=== PATIENT | male | born 1955 | race Caucasian/White ===

== ENCOUNTER 2021-09-03 09:19 | Inpatient (IN) ==
[2021-09-03] MEDS ORDERED: *HR* LORazepam 2 MG/ML VIAL IVP ONE (09:49)
[2021-09-03 10:11] LABS: Basophils % 0.5 %; Bilirubin,Urine Negative (Negative); Blood,Urine Negative (Negative); Clarity,Urine Clear (Clear); Color,Urine Yellow (Yellow); Eosinophils % 0.7 %; Glucose,Urine (UA) Normal (Normal); Hematocrit 49.2 % (37.5-50.1); Hemoglobin 16.5 g/dL (12.9-16.9); Immature Granulocytes % 0.2 % (0-4); Ketones,Urine Negative (Negative); Leukocyte Esterase,Urine Negative (Negative); Lymphocytes # 1.3 K/mcL (0.6-4.6); Mean Corpuscular HGB Conc 33.5 g/dL (31.6-35.5); Mean Corpuscular Hemoglobin 31.1 pg (28.0-33.3); Mean Corpuscular Volume 92.7 fL (83.0-100.0); Mean Platelet Volume 10.6 fL (9.4-12.4); Monocytes # 0.3 K/mcL (0.0-1.3); Monocytes % 7.6 %; Neutrophils # 2.7 K/mcL (1.6-8.9); Nitrite,Urine Negative (Negative); PH,Urine 6.5 pH Units (5.0-8.0); Platelet Count 182 K/mcL (140-400); Protein,Urine Trace mg/dL (Neg-Trace); Red Blood Count 5.31 M/mcL (4.19-5.50); Urobilinogen,Urine Normal (Normal); White Blood Count 4.3 K/mcL (4.3-11.1)
[2021-09-03 10:19] LABS: Amphetamine Screen,Urine Negative ng/mL (Cutoff=1000); Barbiturate Screen,Urine Negative ng/mL (Cutoff=200); Benzodiazepines Screen,Urine Negative ng/mL (Cutoff=200); Cannabinoid Screen,Urine Negative ng/mL (Cutoff = 50); Cocaine Screen,Urine Negative ng/mL (Cutoff= 300); Opiate Screen,Urine Negative ng/mL (Cutoff=300); Phencyclidine Screen,Urine Negative ng/mL (Cutoff=25)
[2021-09-03 10:22] LABS: Estimated Average Glucose 126 mg/dl
[2021-09-03 10:31] LABS: Acetaminophen < 10 mcg/mL (10-20); BUN/Creatinine Ratio 13 (6-26); Blood Urea Nitrogen 17 mg/dL (8-23); Carbon Dioxide 26 mEq/L (23-29); Chloride 106 mEq/L (98-107); Chol/HDL Ratio 4.1 (0-4.9); Cholesterol 210 mg/dL (< 200); Ethanol < 10 mg/dL (Less than 10); Glucose 117 mg/dL (70-105); HDL Cholesterol 51 mg/dL (40-59); LDL Cholesterol,Calculated 131 mg/dL (< 100); Osmolality,Calculated 293 (280-300); Potassium 4.4 mEq/L (3.5-5.1); Salicylate < 2.5 mg/dL (15.0-30.0); Sodium 140 mEq/L (136-145); Triglycerides 138 mg/dL (< 150); eGFR For African Americans > 60 (> 60); eGFR For Non-African Americans 55 (> 60)
[2021-09-03 10:44] LABS: Thyroid Stimulating Hormone 1.813 mcIU/mL (0.340-5.600)
[2021-09-03] MEDS ORDERED: Acetaminophen 325 MG TABLET PO PRN (12:49)
[2021-09-03] MEDS ORDERED: *HR* LORazepam 2 MG/ML VIAL IM PRN (12:49)
[2021-09-03] MEDS ORDERED: *HR* LORazepam 1 MG TABLET PO PRN (12:49)
[2021-09-03] MEDS ORDERED: haloperidoL 5 MG TABLET PO PRN (12:49)
[2021-09-03] MEDS ORDERED: traZODone 50 MG TABLET PO PRN (12:49)
[2021-09-03] MEDS ORDERED: Mag Hydrox/Al Hydrox/Simeth 30 ML UDC PO PRN (12:49)
[2021-09-03] MEDS ORDERED: Haloperidol Lactate 5 MG/ML VIAL IM PRN (12:49)
[2021-09-03] MEDS ORDERED: MOM Conc 10 ML UD.LIQ PO PRN (12:49)
[2021-09-03 14:21] LABS: Influenza A PCR Negative (Negative); Influenza B PCR Negative (Negative); Resp. Syncytial Virus PCR Negative (Negative)
[2021-09-03 14:22] LABS: SARS-CoV-2 by PCR (In House) Negative (Negative)
[2021-09-03] MEDS: tiZANidine 4 MG TABLET PO SCH (20:57)
[2021-09-03] MEDS: Eszopiclone [Lunesta] 3 MG Tablet PO SCH (20:57)
[2021-09-03] MEDS: Cyprohepatdine 4 MG TABLET PO SCH (20:57)
[2021-09-04] MEDS: hydrOXYzine pamoate 25 MG CAPSULE PO PRN ×2 (00:39→08:04)
[2021-09-04] MEDS: Cyprohepatdine 4 MG TABLET PO SCH ×2 (08:03→20:51)
[2021-09-04] MEDS: Aspirin 325 MG TABLET PO SCH (08:03)
[2021-09-04] MEDS: Multivit/Ca/Min/Fe/FA 1 TAB TABLET PO SCH (08:03)
[2021-09-04] MEDS: Vitamin E 200 UNIT (90MG) CAPSULE PO SCH (08:04)
[2021-09-04] MEDS ORDERED: Venlafaxine XR (24 HR) 150 MG CAP.ER.24H PO SCH (09:00)
[2021-09-04] MEDS: *HR* LORazepam 1 MG TABLET PO SCH ×2 (10:50→20:52)
[2021-09-04] MEDS: Lurasidone 20 MG TABLET PO SCH (10:50)
[2021-09-04] MEDS: tiZANidine 4 MG TABLET PO SCH (20:51)
[2021-09-04] MEDS: Eszopiclone [Lunesta] 3 MG Tablet PO SCH (20:52)
[2021-09-05] MEDS: Cyprohepatdine 4 MG TABLET PO SCH ×2 (08:35→20:31)
[2021-09-05] MEDS: Vitamin E 200 UNIT (90MG) CAPSULE PO SCH (08:35)
[2021-09-05] MEDS: Multivit/Ca/Min/Fe/FA 1 TAB TABLET PO SCH (08:35)
[2021-09-05] MEDS: Lurasidone 20 MG TABLET PO SCH (08:36)
[2021-09-05] MEDS: Aspirin 325 MG TABLET PO SCH (08:36)
[2021-09-05] MEDS: *HR* LORazepam 1 MG TABLET PO SCH ×2 (08:36→20:31)
[2021-09-05] MEDS ORDERED: Venlafaxine XR (24 HR) 75 MG CAP.ER.24H PO SCH (09:00)
[2021-09-05] MEDS: tiZANidine 4 MG TABLET PO SCH (20:31)
[2021-09-05] MEDS: Eszopiclone [Lunesta] 3 MG Tablet PO SCH (20:38)
[2021-09-05] MEDS: hydrOXYzine pamoate 25 MG CAPSULE PO PRN (23:06)
[2021-09-06] MEDS: *HR* LORazepam 1 MG TABLET PO SCH ×2 (08:25→20:33)
[2021-09-06] MEDS: Cyprohepatdine 4 MG TABLET PO SCH ×2 (08:25→20:34)
[2021-09-06] MEDS: Vitamin E 200 UNIT (90MG) CAPSULE PO SCH (08:25)
[2021-09-06] MEDS: Multivit/Ca/Min/Fe/FA 1 TAB TABLET PO SCH (08:26)
[2021-09-06] MEDS: Aspirin 325 MG TABLET PO SCH (08:26)
[2021-09-06] MEDS: Lurasidone 20 MG TABLET PO SCH (08:26)
[2021-09-06] MEDS ORDERED: Venlafaxine XR (24 HR) 37.5 MG CAP.ER.24H PO SCH (09:00)
[2021-09-06] MEDS: Eszopiclone [Lunesta] 3 MG Tablet PO SCH (20:33)
[2021-09-06] MEDS: tiZANidine 4 MG TABLET PO SCH (20:34)
[2021-09-06] MEDS ORDERED: Melatonin 3 MG TABLET PO SCH (21:00)
[2021-09-07] MEDS: Vitamin E 200 UNIT (90MG) CAPSULE PO SCH (08:26)
[2021-09-07] MEDS: Lurasidone 20 MG TABLET PO SCH (08:27)
[2021-09-07] MEDS: Aspirin 325 MG TABLET PO SCH (08:27)
[2021-09-07] MEDS: Cyprohepatdine 4 MG TABLET PO SCH (08:28)
[2021-09-07] MEDS: *HR* LORazepam 1 MG TABLET PO SCH (08:28)
[2021-09-07] MEDS: Multivit/Ca/Min/Fe/FA 1 TAB TABLET PO SCH (08:28)
[2021-09-07 08:50] VITALS: BP 127/87; PULSE 86; TEMP 98.5; O2SAT 98
== END 2021-09-07 11:10 | disposition home or self-care (01) | DRG 885 ==
LOC: EMEROOARM 09:19 → 1ANU 15:36
PROVIDERS: ADMIT Psychiatry & Neurology Psychiatry; ATTEND Psychiatry & Neurology Psychiatry